=== PATIENT | female | born 1985 | race Caucasian/White ===

== ENCOUNTER → 2021-01-18 | Day surgery (SDC) | payer MEDICARE, OTHER ==
[~2021-01-18] MED LIST: CENTRUM COMPLE1 EACH PO; KLONOPIN0.5 MG PO; LEVETIRACETAM1000 MG PO; MEGA BIOTIN10000 MCG PO; VIMPAT150 MG PO
[2021-01-18 07:59] LABS: HEMOGLOBIN 12.6 gm/dl (12.3-15.3); RED BLOOD COUNT 4.03 M/UL (4.00-5.10); WHITE BLOOD COUNT 5.3 K/UL (4.5-11.0)
== END | disposition home or self-care (01) ==
LOC: OR 06:48
PROVIDERS: Obstetrics & Gynecology
DX: K66.0 Peritoneal adhesions (postprocedural) (postinfection) (principal); N94.6 Dysmenorrhea, unspecified; R10.2 Pelvic and perineal pain; N94.10 Unspecified dyspareunia; L65.9 Nonscarring hair loss, unspecified; G40.909 Epilepsy, unspecified, not intractable, without status epilepticus; K21.9 Gastro-esophageal reflux disease without esophagitis; Z87.891 Personal history of nicotine dependence; Z88.1 Allergy status to other antibiotic agents; Z79.899 Other long term (current) drug therapy; Z20.822 Contact with and (suspected) exposure to COVID-19
CPT/HCPCS: 36415; 81001; 84702; 85025; C1769; J1100; J1885; J2001; J2250; J2405; J2550; J2704; J2710; J3010; J7120